=== PATIENT | male | born 1985 | race Two or more races ===

== ENCOUNTER 2019-01-18 15:16 | Emergency (ER) | payer SELFPAY ==
[2019-01-18] MEDS ORDERED: KETOROLAC TROMETHAMINE 15 MG/ML VIAL IM ONE (15:49)
[2019-01-18] MEDS ORDERED: ACETAMINOPHEN 325 MG TABLET (FP) PO ONE (15:50)
--- NOTE | 2019-01-18 15:51 | PDOC ---
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 He says that he broke his ribs on December 12 and has been in pain since. He has also been taking suboxone since but ran out 2 days ago so he would like something for pain until he can see his doctor this week. No new complaints. No SOB but pain is worsened with deep breathing, no new trauma/fall, no fever/chills, no NVD, no cough, no other complaints today. He is not here for detox, just needs something for pain. He says that his medicaid ended but he will renew it this week. Timing/Duration: unsure Past History - Past Medical History Allergies/Adverse Reactions: Allergies Allergy/AdvReac Type Severity Reaction Status Date / Time Penicillins Allergy Verified 01/18/19 15:24 COPD: No - Suicide/Smoking/Psychosocial Hx Smoking History: Current every day smoker Number of Cigarettes Smoked Daily: 5 Information on smoking cessation initiated: No Drug/Substance Use Hx: Yes Review of Systems - Review of Systems Able to Perform ROS?: Yes Constitutional: No: Chills, Fever, Malaise, Night Sweats HEENTM: No: Eye Pain, Recent change in vision, Throat Pain Respiratory: No: Cough Cardiac (ROS): No: Palpitations, Chest Tightness ABD/GI: No: Diarrhea, Nausea, Vomiting, Abdominal cramping : No: Dysuria, Hematuria Integumentary: No: Rash Neurological: No: Headache, Numbness, Dizziness Psychiatric: No: Change in Appetite Endocrine: No: Unexplained Weight Loss *Physical Exam - Vital Signs Last Vital Signs Temp Pulse Resp BP Pulse Ox 97 F L 101 H 18 116/83 97 01/18/19 15:18 01/18/19 15:18 01/18/19 15:18 01/18/19 15:18 01/18/19 15:18 - Physical Exam General Appearance: Yes: Nourished. No: Apparent Distress HEENT: positive: RANDY, Normal ENT Inspection, Normal Voice. negative: Pale Conjunctivae, Scleral Icterus (R), Scleral Icterus (L) Neck: positive: Supple. negative: Decreased range of motion, Tender midline Respiratory/Chest: positive: Lungs Clear, Normal Breath Sounds, Other (mild L sided chest wall tenderness, no skin changes). negative: Respiratory Distress, Accessory Muscle Use Cardiovascular: positive: Regular Rhythm, Regular Rate Gastrointestinal/Abdominal: positive: Normal Bowel Sounds, Soft. negative: Tender Musculoskeletal: positive: Normal Inspection. negative: CVA Tenderness, Decreased Range of Motion Extremity: positive: Normal Capillary Refill, Normal Inspection, Normal Range of Motion. negative: Tender, Pedal Edema Integumentary: positive: Normal Color, Dry. negative: Jaundice, Rash Neurologic: positive: Fully Oriented, Alert, Normal Mood/Affect Medical Decision Making - Medical Decision Making 01/18/19 15:59 33 yo M w/ chest wall pain for 1 month s/p rib fractures, says that he ran out of his suboxone and eneds pain meds. WIll give NSAIDs and tylenol and will have pt see his PMD. Lungs CTA. vitals WNLs. I counseled pt on the importance of taking deep breaths to prevent lung collapse , he verbalized understanding. Return for worsening/concerning symptoms. *DC/Admit/Observation/Transfer Diagnosis at time of Disposition: Chest wall pain - Discharge Dispostion Disposition: HOME Condition at time of disposition: Stable - Referrals - Patient Instructions Additional Instructions: Please follow up with your doctor this week and make sure that you take deep breaths as instructed to prevent lung collapse. Return for worsening/concerning symptoms. - Post Discharge Activity
[2019-01-18] MEDS ORDERED: KETOROLAC TROMETHAMINE 15 MG/ML VIAL ONE (15:54)
[2019-01-18] MEDS ORDERED: ACETAMINOPHEN 325 MG TABLET (FP) ONE (15:54)
[2019-01-18 16:04] VITALS: BP 118/74; PULSE 98; TEMP 97.7
== END 2019-01-18 16:13 | disposition home or self-care (01) ==
LOC: JERFT 15:16
PROC: 3E0233Z Introduction of Anti-inflammatory into Muscle, Percutaneous Approach (ICD-10-PCS; principal; 2019-01-18)
DX: R07.89 Other chest pain (principal); F17.210 Nicotine dependence, cigarettes, uncomplicated; F11.21 Opioid dependence, in remission
CPT/HCPCS: 99282-25